=== PATIENT | female | born 1990 | race Caucasian/White ===

== ENCOUNTER 2016-08-07 21:58 | Emergency (ER) | payer MEDICAID ==
[2016-08-07 22:55] VITALS: O2SAT 96
[2016-08-07] MEDS ORDERED: Sodium Chloride 0.9% 1000 ML 1,000 ML IV STA (23:08)
[2016-08-07] MEDS ORDERED: Zofran 4 MG/2 ML VIAL IV ONE (23:09)
--- NOTE | 2016-08-07 23:13 | ERPHSYRPT ---
- History of Present Illness Time Seen by Provider: 08/07/16 23:00 Source: patient Exam Limitations: clinical condition Patient Subjective Stated Complaint: pt is co fever ,chills and lower back pain off and on since thursday -last week she had urinary sx and took cranberry juice and water with relief -tonight lower back pain ,chilling and temp of 100.4 and weakness pos nausea -had to leave work thursday because of feeling bad Triage Nursing Assessment: pt is awake and alert and able to answer questions Physician History: PATIENT COMPLAINS OF LEFT FLANK PAIN, FEVER, CHILLS INTERMITTENTLY FOR 10 DAYS, URGENCY OF URINATION WITH SMALL AMOUNTS. DENIES DYSURIA, HEMATURIA, EMESIS OR DIARRHEA. Timing/Duration: week(s) Activites at Onset: none Quality: throbbing Onset Location: left flank Pain Radiation: none Severity of Pain-Max: severe Severity of Pain-Current: severe Sexual intercourse history: non-contributory Modifying Factors: Improves With: urinating Associated Symptoms: fever, chills, other (URGENCY) Allergies/Adverse Reactions: No Known Drug Allergies Allergy (Verified 03/28/16 06:16) Hx Tetanus, Diphtheria Vaccination/Date Given: Yes Hx Influenza Vaccination/Date Given: Yes Hx Pneumococcal Vaccination/Date Given: No - Review of Systems Constitutional: Fever, Chills Eyes: No Symptoms Ears, Nose, & Throat: No Symptoms Respiratory: No Symptoms, No Cough, No Dyspnea Cardiac: No Symptoms, No Chest Pain, No Edema, No Syncope Abdominal/Gastrointestinal: No Symptoms, No Abdominal Pain, No Nausea, No Vomiting, No Diarrhea Genitourinary Symptoms: Urgency, Flank Pain, No Dysuria Musculoskeletal: No Symptoms, No Back Pain, No Neck Pain Skin: No Symptoms, No Rash Neurological: No Dizziness, No Focal Weakness, No Sensory Changes Psychological: No Symptoms Endocrine: No Symptoms All Other Systems: Reviewed and Negative - Past Medical History Pertinent Past Medical History: Yes Neurological History: No Pertinent History, Other ENT History: No Pertinent History Cardiac History: No Pertinent History Respiratory History: No Pertinent History Endocrine Medical History: No Pertinent History Musculoskeletal History: No Pertinent History GI Medical History: No Pertinent History History: No Pertinent History Psycho-Social History: No Pertinent History Female Reproductive Disorders: No Pertinent History Other Medical History: right knee pain - Past Surgical History Past Surgical History: Yes Neuro Surgical History: No Pertinent History Cardiac: No Pertinent History Respiratory: No Pertinent History Gastrointestinal: No Pertinent History Genitourinary: No Pertinent History Musculoskeletal: No Pertinent History Female Surgical History: Section - Social History Smoking Status: Former smoker How long have you smoked: 10 years Exposure to second hand smoke: Yes Drug Use: none Patient Lives Alone: No - Female History Hx Last Menstrual Period: unknown Hx Now: (POSSABLE) - Nursing Vital Signs Nursing Vital Signs: Initial Vital Signs Temperature 99.4 F Temperature Source Oral Pulse Rate 80 Respiratory Rate 16 Blood Pressure [Right Arm] 116/80 Pain Intensity 6 - Physical Exam SpO2: 96 Oxygen Delivery: Room Air - CT Exams Abdomen/Pelvis CT Interpretation: Tele-radiologist Report (THERE IS 2MM LEFT UPPER POLE RENAL CALCULUS) Ordered Tests: Active Orders 24 hr Category Date Time Status IV Insertion STAT Care 08/07/16 23:08 Active ABDOMEN AND PELVIS W/0 CONTRAS [CT] Stat Exams 08/07/16 23:08 Taken BLOOD CULTURE Stat Lab 08/07/16 23:30 Received BMP Stat Lab 08/07/16 23:15 Completed CBC W DIFF Stat Lab 08/07/16 23:15 Completed HCG,QUALITATIVE URINE Stat Lab 08/07/16 23:00 Completed UA W/ MICROSCOPIC Stat Lab 08/07/16 23:00 Completed Urine Triage Profile Stat Lab 08/07/16 23:00 Completed Medication Summary Generic Name Dose Route Start Last Admin Trade Name Freq PRN Reason Stop Dose Admin Ketorolac Tromethamine 30 mg 08/08/16 00:51 Toradol 30 Mg Injection IV 08/08/16 00:52 STAT ONE Discontinued Medications Generic Name Dose Route Start Last Admin Trade Name Freq PRN Reason Stop Dose Admin Fentanyl Citrate 100 mcg 08/07/16 23:18 08/08/16 00:00 Sublimaze 100 Mcg/2 Ml IV 08/07/16 23:19 100 mcg STAT ONE Administration Fentanyl Citrate Confirm 08/07/16 23:56 Sublimaze 100 Mcg/2 Ml Administered 08/07/16 23:57 Dose 100 mcg .ROUTE .STK-MED ONE Sodium Chloride 1,000 mls @ 999 mls/hr 08/07/16 23:08 08/07/16 23:21 Sodium Chloride 0.9% 1000 Ml IV 08/08/16 00:08 999 mls/hr .Q1H1M STA Administration Sodium Chloride Confirm 08/07/16 23:19 Sodium Chloride 0.9% 1000 Ml Administered 08/07/16 23:20 Dose 1,000 mls @ ud .ROUTE .STK-MED ONE Sodium Chloride Confirm 08/07/16 23:59 Sodium Chloride 0.9% 1000 Ml Administered 08/08/16 00:00 Dose 1,000 mls @ ud .ROUTE .STK-MED ONE Ondansetron HCl 4 mg 08/07/16 23:09 08/07/16 23:22 Zofran 4 Mg/2 Ml Vial IV 08/07/16 23:10 4 mg STAT ONE Administration Ondansetron HCl Confirm 08/07/16 23:19 Zofran 4 Mg/2 Ml Vial Administered 08/07/16 23:20 Dose 4 mg .ROUTE .STK-MED ONE Lab/Rad Data: Laboratory Result Diagrams 08/07/16 23:15 08/07/16 23:15 Laboratory Results 08/07/16 08/07/16 08/07/16 Range/Units 23:15 23:15 23:00 WBC 7.7 (4.0-10.5) K/mm3 RBC 3.96 L (4.1-5.4) M/mm3 Hgb 11.0 L (12.0-16.0) gm/dl Hct 33.8 L (35-47) % MCV 85.4 (78-100) fl MCH 27.7 (26-32) pg MCHC 32.5 (32-36) g/dl RDW 14.0 (11.5-14.0) % Plt Count 285 (150-450) K/mm3 MPV 9.5 (6-9.5) fl Gran % 52.7 (36.0-66.0) % Lymphocytes % 31.9 (24.0-44.0) % Monocytes % 14.7 H (0.0-12.0) % Eosinophils % 0.4 (0.00-5.0) % Basophils % 0.3 (0.0-0.4) % Basophils # 0.02 (0-0.4) Sodium 143 (136-145) mEq/L Potassium 3.5 (3.5-5.1) mEq/L Chloride 107 (98-107) mEq/L Carbon Dioxide 25.2 (21-32) mEq/L Anion Gap 14.3 (5-15) MEQ/L BUN 15 (9-20) mg/dL Creatinine 0.73 (0.55-1.30) mg/dl Estimated GFR > 60 ML/MIN Glucose 101 (70-110) MG/DL Calcium 8.9 (8.5-10.1) mg/dL Ur Collection Type Urine Color (YELLOW) Urine Appearance (CLEAR) Urine pH (5-6) Ur Specific [place] (1.005-1.025) Urine Protein (Negative) Urine Glucose (UA) (NEGATIVE) mg/dL Urine Ketones (NEGATIVE) Urine Nitrite (NEGATIVE) Urine Bilirubin (NEGATIVE) Urine Urobilinogen (0-1) mg/dL Urine WBC (Auto) (NEGATIVE) Urine RBC (Auto) (0-5) Eamon/ul Urine Microscopic WBC (0-5) /HPF Ur Epithelial Cells (FEW) /HPF Urine Bacteria (NEGATIVE) /HPF Urine Mucus (NEGATIVE) /HPF Urine HCG, Qual NEGATIVE (Negative) Urine Opiates Level (NEGATIVE) Ur Methadone (NEGATIVE) Urine Barbiturates (NEGATIVE) Ur Phencyclidine (PCP) (NEGATIVE) Urine Amphetamine (NEGATIVE) U Benzodiazepine Level (NEGATIVE) Urine Cocaine (NEGATIVE) Urine Marijuana (THC) (NEGATIVE) Specimen Received 08/07/16 08/07/16 Range/Units 23:00 23:00 WBC (4.0-10.5) K/mm3 RBC (4.1-5.4) M/mm3 Hgb (12.0-16.0) gm/dl Hct (35-47) % MCV (78-100) fl MCH (26-32) pg MCHC (32-36) g/dl RDW (11.5-14.0) % Plt Count (150-450) K/mm3 MPV (6-9.5) fl Gran % (36.0-66.0) % Lymphocytes % (24.0-44.0) % Monocytes % (0.0-12.0) % Eosinophils % (0.00-5.0) % Basophils % (0.0-0.4) % Basophils # (0-0.4) Sodium (136-145) mEq/L Potassium (3.5-5.1) mEq/L Chloride (98-107) mEq/L Carbon Dioxide (21-32) mEq/L Anion Gap (5-15) MEQ/L BUN (9-20) mg/dL Creatinine (0.55-1.30) mg/dl Estimated GFR ML/MIN Glucose (70-110) MG/DL Calcium (8.5-10.1) mg/dL Ur Collection Type CLEAN CATCH Urine Color YELLOW (YELLOW) Urine Appearance CLEAR (CLEAR) Urine pH 8.5 (5-6) Ur Specific [place] 1.015 (1.005-1.025) Urine Protein TRACE (Negative) Urine Glucose (UA) NEGATIVE (NEGATIVE) mg/dL Urine Ketones SMALL-15 (NEGATIVE) Urine Nitrite NEGATIVE (NEGATIVE) Urine Bilirubin NEGATIVE (NEGATIVE) Urine Urobilinogen 4 (0-1) mg/dL Urine WBC (Auto) TRACE (NEGATIVE) Urine RBC (Auto) NEGATIVE (0-5) Eamon/ul Urine Microscopic WBC 0-2 (0-5) /HPF Ur Epithelial Cells FEW (FEW) /HPF Urine Bacteria RARE (NEGATIVE) /HPF Urine Mucus SLIGHT (NEGATIVE) /HPF Urine HCG, Qual (Negative) Urine Opiates Level NEG. (NEGATIVE) Ur Methadone NEG. (NEGATIVE) Urine Barbiturates NEG. (NEGATIVE) Ur Phencyclidine (PCP) NEG. (NEGATIVE) Urine Amphetamine NEG. (NEGATIVE) U Benzodiazepine Level NEG. (NEGATIVE) Urine Cocaine NEG. (NEGATIVE) Urine Marijuana (THC) NEG. (NEGATIVE) Specimen Received 08/07/16:2300 - Progress Progress: improved Progress Note: 08/07/16 23:12 PATIENT GIVEN IV BOLUS 1 LITER/HR X 2, ZOFRAN 4MG, FENTANYL 0.1MG IV AND TORADOL 30MG IV 08/08/16 01:01 Counseled pt/family regarding: lab results, diagnosis, need for follow-up, rad results - Departure Time of Disposition: 01:15 Departure Disposition: Home Clinical Impression: LEFT RENAL CALCULUS Condition: Stable Critical Care Time: No Additional Instructions: DRINK PLENTY OF FLUIDS. ZOFRAN 4MG EVERY 4 HOURS FOR NAUSEA. CONTINUE PERCOCET EVERY 4-6 HOURS FOR PAIN. CONSULT YOUR FAMILY PHYSICIAN FOR EVALUATION IN 4-5 DAYS. USE A STRAINER TO STRAIN YOUR URINE FOR 72 HOURS. Prescriptions: Ondansetron [Zofran Odt] 4 mg PO Q4H PRN PRN #4 tab.rapdis PRN Reason: Nausea Oxycodone HCl/Acetaminophen [Percocet 10-325 mg Tablet] 1 each PO Q4H PRN PRN # 20 tablet PRN Reason: Pain
[2016-08-07] MEDS ORDERED: SUBLIMAZE 100 MCG/2 ML IV ONE (23:18)
[2016-08-07 23:19] LABS: Collection Type CLEAN CATCH; Ph 8.5 (5-6)
[2016-08-07] MEDS ORDERED: Sodium Chloride 0.9% 1000 ML 1,000 ML ONE ×2 (23:19→23:59)
[2016-08-07] MEDS ORDERED: Zofran 4 MG/2 ML VIAL ONE (23:19)
[2016-08-07 23:20] LABS: Bacteria RARE /HPF (NEGATIVE); COMPLETE URINE MICROSCOPIC? YES; Epithelial Cells FEW /HPF (FEW); Mucus SLIGHT /HPF (NEGATIVE); WBC 0-2 /HPF (0-5)
[2016-08-07 23:27] LABS: BASOPHIL % 0.3 % (0.0-0.4); Eosinophil % 0.4 % (0.00-5.0); Granulocytes % 52.7 % (36.0-66.0); Lymphocytes % 31.9 % (24.0-44.0); Mean Cell Volume 85.4 fl (78-100); Mean Platelet Volume 9.5 fl (6-9.5); Monocytes % 14.7 % (0.0-12.0); Platelet Count 285 K/mm3 (150-450); Red Blood Count 3.96 M/mm3 (4.1-5.4); White Blood Count 7.7 K/mm3 (4.0-10.5)
[2016-08-07 23:30] LABS: Mean Corpuscular Hemoglobin 27.7 pg (26-32)
[2016-08-07 23:40] LABS: ANION GAP 14.3 MEQ/L (5-15); BLOOD UREA NITROGEN 15 mg/dL (9-20); CHLORIDE 107 mEq/L (98-107); Carbon Dioxide 25.2 mEq/L (21-32); Glucose 101 MG/DL (70-110); Potassium 3.5 mEq/L (3.5-5.1); SODIUM 143 mEq/L (136-145)
[2016-08-07] MEDS ORDERED: SUBLIMAZE 100 MCG/2 ML ONE (23:56)
[2016-08-08] MEDS ORDERED: TORAdol 30 mg Injection IV ONE (00:51)
[2016-08-08 01:01] VITALS: BP 128/78; PULSE 72
[2016-08-08] MEDS ORDERED: TORAdol 30 mg Injection ONE (01:03)
--- NOTE | 2016-08-08 08:55 | XRAY ---
Indication: Left flank pain for over one week. Fever. Trouble urinating. Multiple contiguous axial images obtained through the abdomen and pelvis without contrast as ordered. Comparison: None Calcified granuloma in the right lung base. Lung bases otherwise clear. Heart is not enlarged. Noncontrasted stomach and bowel loops appear nonobstructed. Normal appendix. Tiny cul-de-sac fluid presumed from ruptured/leaking cyst. Ovaries are slightly prominent with follicular cysts, largest on the left measuring 1.7 cm. Uterus demonstrates a IUD in situ. Gallbladder contracted without gallstones or biliary distention. Nonobstructing left renal micro-calculus. Remaining liver, pancreas, spleen, adrenal glands, kidneys, ureters, bladder, and aorta appear unremarkable for noncontrast exam. Osseous structures intact. Impression: 1. Tiny cul-de-sac fluid presumed physiologic from ruptured/leaking cyst. Dominant left ovary cyst. Pelvic ultrasound may yield further information if clinically warranted. 2. Remaining CT abdomen/pelvis without contrast exam is negative. Comment: Preliminary interpretation was made by [facility]. No critical discrepancy. CT DI 10.28
== END 2016-08-08 01:49 | disposition home or self-care (01) ==
LOC: ED 21:58
DX: N20.0 Calculus of kidney (principal); R11.0 Nausea; R50.9 Fever, unspecified; M54.5 Low back pain; R10.9 Unspecified abdominal pain
CPT/HCPCS: 36000; 36415; 74176; 80048; 80307; 81000; 84703; 85025; 87040; 96360; 96374; 96375; 99283; J1885; J2405; J3010

== ENCOUNTER 2018-03-18 18:39 | Emergency (ER) | payer OTHER ==
[2018-03-18] MEDS ORDERED: Sodium Chloride 0.9% 1000 ML 1,000 ML IV STA (19:10)
[2018-03-18] MEDS ORDERED: Zofran 4 MG/2 ML VIAL IV ONE (19:10)
[2018-03-18] MEDS ORDERED: TORAdol 30 mg Injection IV ONE (19:10)
[2018-03-18 19:12] VITALS: BP 108/72; PULSE 79; O2SAT 100
--- NOTE | 2018-03-18 19:14 | ERPHSYRPT ---
- History of Present Illness Time Seen by Provider: 03/18/18 19:03 Source: patient Exam Limitations: no limitations Physician History: 27 y/o female comes to the ER with complaints of left flank pain that started today. Pt states that she has been on bactrim for a UTI for the past 2 days. Pt describes the pain as sharp, constant, 8/10, with radiation to lower abdomen and not relieved by motrin. Pt had a fever on Thursday. Pt admits to nausea, but no vomiting, diarrhea, chills or urinary symptoms. Timing/Duration: today Activites at Onset: none Quality: sharpness Onset Location: left flank Pain Radiation: suprapubic Severity of Pain-Max: severe Severity of Pain-Current: severe Prior abdominal problems: none Sexual intercourse history: non-contributory Modifying Factors: Improves With: nothing Associated Symptoms: denies symptoms, No fever, No dysuria, No nocturia, No polyuria, No urinary frequency, No vaginal discharge Allergies/Adverse Reactions: No Known Drug Allergies Allergy (Verified 03/18/18 19:14) Hx Tetanus, Diphtheria Vaccination/Date Given: Yes Hx Influenza Vaccination/Date Given: Yes Hx Pneumococcal Vaccination/Date Given: No - Review of Systems Constitutional: No Fever, No Chills Eyes: No Symptoms Ears, Nose, & Throat: No Symptoms Respiratory: No Cough, No Dyspnea Cardiac: No Chest Pain, No Edema, No Syncope Abdominal/Gastrointestinal: No Abdominal Pain, No Nausea, No Vomiting, No Diarrhea Genitourinary Symptoms: Flank Pain, No Dysuria, No Frequency, No Hematuria, No Hesitancy Musculoskeletal: No Back Pain, No Neck Pain Skin: No Rash Neurological: No Dizziness, No Focal Weakness, No Sensory Changes Psychological: No Symptoms Endocrine: No Symptoms All Other Systems: Reviewed and Negative - Past Medical History Pertinent Past Medical History: Yes Neurological History: No Pertinent History ENT History: No Pertinent History Cardiac History: No Pertinent History Respiratory History: No Pertinent History Endocrine Medical History: No Pertinent History Musculoskeletal History: No Pertinent History GI Medical History: No Pertinent History History: No Pertinent History Psycho-Social History: No Pertinent History Female Reproductive Disorders: No Pertinent History Other Medical History: right knee pain - Past Surgical History Past Surgical History: Yes Neuro Surgical History: No Pertinent History Cardiac: No Pertinent History Respiratory: No Pertinent History Gastrointestinal: No Pertinent History Genitourinary: No Pertinent History Musculoskeletal: No Pertinent History Female Surgical History: Section - Social History Smoking Status: Former smoker How long have you smoked: 10 years Exposure to second hand smoke: Yes Drug Use: none Patient Lives Alone: No - Nursing Vital Signs Nursing Vital Signs: Initial Vital Signs Temperature 98.2 F 03/18/18 18:59 Pulse Rate 79 03/18/18 18:59 Blood Pressure 108/72 03/18/18 18:59 O2 Sat by Pulse Oximetry 100 03/18/18 18:59 Pain Scale Pain Intensity 8 - Physical Exam General Appearance: mild distress, alert Eye Exam: PERRL/EOMI, eyes nml inspection Ears, Nose, Throat Exam: normal ENT inspection, TMs normal, pharynx normal, moist mucous membranes Neck Exam: normal inspection, non-tender, supple, full range of motion Respiratory Exam: normal breath sounds, lungs clear, No respiratory distress Cardiovascular Exam: regular rate/rhythm, normal heart sounds, normal peripheral pulses Gastrointestinal/Abdomen Exam: soft, No tenderness, No mass Back Exam: normal inspection, normal range of motion, CVA tenderness, No vertebral tenderness Extremity Exam: normal inspection, normal range of motion, pelvis stable Neurologic Exam: alert, oriented x 3, cooperative, college admissions counselor II-XII nml as tested, normal mood/affect, sensation nml, No motor deficits Skin Exam: normal color, warm, dry Lymphatic Exam: No adenopathy - Course Nursing assessment & vital signs reviewed: Yes Ordered Tests: Active Orders 24 hr Category Date Time Status IV Insertion STAT Care 03/18/18 19:10 Active NPO (ED) STAT Care 03/18/18 19:10 Active ABDOMEN AND PELVIS W/0 CONTRAS [CT] Stat Exams 03/18/18 19:10 Taken AMYLASE Stat Lab 03/18/18 19:26 Completed CBC W DIFF Stat Lab 03/18/18 19:26 Completed CMP Stat Lab 03/18/18 19:26 Completed CULTURE,URINE Stat Lab 03/18/18 Received HCG QUALITATIVE,SERUM Stat Lab 03/18/18 19:26 Completed LIPASE Stat Lab 03/18/18 19:26 Completed UA W/ MICROSCOPIC Stat Lab 03/18/18 Completed Medication Summary Generic Name Dose Route Start Last Admin Trade Name Freq PRN Reason Stop Dose Admin Ceftriaxone Sodium/Dextrose 1 g in 50 mls @ 100 mls/hr 03/18/18 22:12 Rocephin 1 Gm-D5w 50 Ml Bag IV 03/18/18 22:41 STAT ONE Discontinued Medications Generic Name Dose Route Start Last Admin Trade Name Gretchen PRN Reason Stop Dose Admin Hydrocodone Bitart/Acetaminophen 2 tab 03/18/18 22:12 [place] 5/325 Mg PO 03/18/18 22:13 STAT ONE Sodium Chloride 1,000 mls @ 999 mls/hr 03/18/18 19:10 03/18/18 20:39 Sodium Chloride 0.9% 1000 Ml IV 03/18/18 20:10 Infused .Q1H1M STA Infusion Sodium Chloride Confirm 03/18/18 19:28 Sodium Chloride 0.9% 1000 Ml Administered 03/18/18 19:29 Dose 1,000 mls @ ud .ROUTE .STK-MED ONE Ketorolac Tromethamine 30 mg 03/18/18 19:10 03/18/18 19:30 Toradol 30 Mg Injection IV 03/18/18 19:11 30 mg STAT ONE Administration Ketorolac Tromethamine Confirm 03/18/18 19:28 Toradol 30 Mg Injection Administered 03/18/18 19:29 Dose 30 mg .ROUTE .STK-MED ONE Ondansetron HCl 4 mg 03/18/18 19:10 03/18/18 19:30 Zofran 4 Mg/2 Ml Vial IV 03/18/18 19:11 4 mg STAT ONE Administration Ondansetron HCl Confirm 03/18/18 19:28 Zofran 4 Mg/2 Ml Vial Administered 03/18/18 19:29 Dose 4 mg .ROUTE .STK-MED ONE Lab/Rad Data: Laboratory Result Diagrams 03/18/18 19:26 03/18/18 19:26 Laboratory Results 03/18/18 03/18/18 03/18/18 Range/Units Unknown 19:26 19:26 WBC (4.0-10.5) K/mm3 RBC (4.1-5.4) M/mm3 Hgb (12.0-16.0) gm/dl Hct (35-47) % MCV (78-100) fl MCH (26-32) pg MCHC (32-36) g/dl RDW (11.5-14.0) % Plt Count (150-450) K/mm3 MPV (6-9.5) fl Gran % (36.0-66.0) % Eos # (Auto) (0-0.5) Absolute Lymphs (auto) (1.0-4.6) Absolute Monos (auto) (0.0-1.3) Lymphocytes % (24.0-44.0) % Monocytes % (0.0-12.0) % Eosinophils % (0.00-5.0) % Basophils % (0.0-0.4) % Absolute Granulocytes (1.4-6.9) Basophils # (0-0.4) Sodium 142 (137-145) mmol/L Potassium 4.0 (3.5-5.1) mmol/L Chloride 106 (98-107) mmol/L Carbon Dioxide 26 (22-30) mmol/L Anion Gap 14.2 (5-15) MEQ/L BUN 9 (7-17) mg/dL Creatinine 0.73 (0.52-1.04) mg/dL Estimated GFR > 60.0 ML/MIN Glucose 82 (74-106) mg/dL Calcium 9.3 (8.4-10.2) mg/dL Total Bilirubin 0.20 (0.2-1.3) mg/dL AST 14 (14-36) U/L ALT 9 (0-35) U/L Alkaline Phosphatase 66 (38-126) U/L Serum Total Protein 7.2 (6.3-8.2) g/dL Albumin 4.4 (3.5-5.0) g/dL Amylase 51 (30-110) U/L Lipase 93 (23-300) U/L Serum , Qual NEGATIVE (Negative) Ur Collection Type CCMS Urine Color YELLOW (YELLOW) Urine Appearance CLEAR (CLEAR) Urine pH 6.0 (5-6) Ur Specific [place] 1.015 (1.005-1.025) Urine Protein NEGATIVE (Negative) Urine Ketones NEGATIVE (NEGATIVE) Urine Blood 50 (0-5) Eamon/ul Urine Nitrite NEGATIVE (NEGATIVE) Urine Bilirubin NEGATIVE (NEGATIVE) Urine Urobilinogen NORMAL (0-1) mg/dL Ur Leukocyte Esterase TRACE (NEGATIVE) Urine Microscopic RBC 2-5 (0-2) /HPF Urine Microscopic WBC 2-5 (0-5) /HPF Ur Epithelial Cells FEW (FEW) /HPF Urine Culture Reflexed YES (NO) Urine Glucose NEGATIVE (NEGATIVE) mg/dL Specimen Received 03-18-18 2030 03/18/18 Range/Units 19:26 WBC 9.3 (4.0-10.5) K/mm3 RBC 3.93 L (4.1-5.4) M/mm3 Hgb 12.3 (12.0-16.0) gm/dl Hct 36.8 (35-47) % MCV 93.6 (78-100) fl MCH 31.2 (26-32) pg MCHC 33.4 (32-36) g/dl RDW 12.1 (11.5-14.0) % Plt Count 300 (150-450) K/mm3 MPV 8.8 (6-9.5) fl Gran % 48.4 (36.0-66.0) % Eos # (Auto) 0.14 (0-0.5) Absolute Lymphs (auto) 3.29 (1.0-4.6) Absolute Monos (auto) 1.33 H (0.0-1.3) Lymphocytes % 35.4 (24.0-44.0) % Monocytes % 14.3 H (0.0-12.0) % Eosinophils % 1.5 (0.00-5.0) % Basophils % 0.4 (0.0-0.4) % Absolute Granulocytes 4.49 (1.4-6.9) Basophils # 0.04 (0-0.4) Sodium (137-145) mmol/L Potassium (3.5-5.1) mmol/L Chloride (98-107) mmol/L Carbon Dioxide (22-30) mmol/L Anion Gap (5-15) MEQ/L BUN (7-17) mg/dL Creatinine (0.52-1.04) mg/dL Estimated GFR ML/MIN Glucose (74-106) mg/dL Calcium (8.4-10.2) mg/dL Total Bilirubin (0.2-1.3) mg/dL AST (14-36) U/L ALT (0-35) U/L Alkaline Phosphatase (38-126) U/L Serum Total Protein (6.3-8.2) g/dL Albumin (3.5-5.0) g/dL Amylase (30-110) U/L Lipase (23-300) U/L Serum , Qual (Negative) Ur Collection Type Urine Color (YELLOW) Urine Appearance (CLEAR) Urine pH (5-6) Ur Specific [place] (1.005-1.025) Urine Protein (Negative) Urine Ketones (NEGATIVE) Urine Blood (0-5) Eamon/ul Urine Nitrite (NEGATIVE) Urine Bilirubin (NEGATIVE) Urine Urobilinogen (0-1) mg/dL Ur Leukocyte Esterase (NEGATIVE) Urine Microscopic RBC (0-2) /HPF Urine Microscopic WBC (0-5) /HPF Ur Epithelial Cells (FEW) /HPF Urine Culture Reflexed (NO) Urine Glucose (NEGATIVE) mg/dL Specimen Received - Progress Progress: improved Progress Note: 03/18/18 22:13 Pt feels better after receiving NS fluids, zofran and toradol. The CT scan abd/ pelvis shows left sided pyelonephritis. The patient has no fever, no white count and is not actively vomiting. Pt will stop bactrim and will be given a dose of rocephin 1000 IV X 1 dose as well as will be given a script for cipro for 7 days. Pt will also be given a script for norco, toradol, zofran and cipro. - Departure Time of Disposition: 22:15 Departure Disposition: Home Clinical Impression: Pyelonephritis Condition: Stable Critical Care Time: No Referrals: FREDY HOUSTON [Primary Care Provider] - Instructions: Urinary Tract Infection, Adult (DC) Additional Instructions: STOP Bactrim right away. Return to the ER if you should have fever, chills, nausea, vomiting or worsening flank pain. Prescriptions: Ondansetron ODT 4 MG [Zofran Odt 4 mg] 4 mg PO Q6H PRN PRN #10 tab.rapdis PRN Reason: Nausea/Vomiting Ciprofloxacin HCl [Cipro] 500 mg PO BID #14 tablet Hydrocodone Bit/Acetaminophen [[place] 5-325 Tablet] 1 each PO QID PRN #10 tablet MDD 4 PRN Reason: Severe Pain Ketorolac Tromethamine [Toradol] 10 mg PO QID PRN #20 tablet PRN Reason: Pain
[2018-03-18 19:28] LABS: BASOPHIL % 0.4 % (0.0-0.4); Basophil (Absolute #) 0.04 (0-0.4); Eosinophil % 1.5 % (0.00-5.0); Eosinophil (Absolute #) 0.14 (0-0.5); Granulocyte Absolute (ANC) 4.49 (1.4-6.9); Granulocytes % 48.4 % (36.0-66.0); Hematocrit 36.8 % (35-47); Hemoglobin 12.3 gm/dl (12.0-16.0); Lymphocyte (Absolute #) 3.29 (1.0-4.6); Lymphocytes % 35.4 % (24.0-44.0); Mean Cell Volume 93.6 fl (78-100); Mean Corpuscular Hgb Concent. 33.4 g/dl (32-36); Mean Platelet Volume 8.8 fl (6-9.5); Monocyte (Absolute #) 1.33 (0.0-1.3); Monocytes % 14.3 % (0.0-12.0); Platelet Count 300 K/mm3 (150-450); Red Blood Count 3.93 M/mm3 (4.1-5.4); Red Cell Distribution Width 12.1 % (11.5-14.0); White Blood Count 9.3 K/mm3 (4.0-10.5)
[2018-03-18] MEDS ORDERED: Sodium Chloride 0.9% 1000 ML 1,000 ML ONE (19:28)
[2018-03-18] MEDS ORDERED: TORAdol 30 mg Injection ONE (19:28)
[2018-03-18] MEDS ORDERED: Zofran 4 MG/2 ML VIAL ONE (19:28)
[2018-03-18 19:44] LABS: Mean Corpuscular Hemoglobin 31.2 pg (26-32)
[2018-03-18 19:51] LABS: ALBUMIN 4.4 g/dL (3.5-5.0); ALKALINE PHOSPHATASE 66 U/L (38-126); AMYLASE 51 U/L (30-110); ANION GAP 14.2 MEQ/L (5-15); BLOOD UREA NITROGEN 9 mg/dL (7-17); CHLORIDE 106 mmol/L (98-107); Calcium 9.3 mg/dL (8.4-10.2); Carbon Dioxide 26 mmol/L (22-30); Creatinine 1 0.73 mg/dL (0.52-1.04); Glucose 82 mg/dL (74-106); LIPASE 93 U/L (23-300); SGOT/AST 14 U/L (14-36); SGPT/ALT 9 U/L (0-35); SODIUM 142 mmol/L (137-145); Total Protein 7.2 g/dL (6.3-8.2)
[2018-03-18 20:33] LABS: Appearance CLEAR (CLEAR); Bilirubin NEGATIVE (NEGATIVE); Glucose NEGATIVE (NEGATIVE); Ketones NEGATIVE (NEGATIVE); Leukocyte Esterase TRACE (NEGATIVE); Nitrite NEGATIVE (NEGATIVE); Protein,Urine Dip NEGATIVE (Negative); Specific Gravity 1.015 (1.005-1.025); Urobilinogen NORMAL mg/dL (0-1)
[2018-03-18 20:34] LABS: Blood 50 Ery/ul (0-5); Epithelial Cells FEW /HPF (FEW)
[2018-03-18] MEDS ORDERED: ROCEPHIN 1 Gm-D5w 50 ml Bag** 1 G/50 ML IVPB IV ONE ×2 (22:12→22:29)
[2018-03-18] MEDS ORDERED: NORCO 5/325 MG PO ONE (22:12)
[2018-03-18] MEDS ORDERED: NORCO 5/325 MG ONE (22:29)
--- NOTE | 2018-03-19 09:16 | XRAY ---
Indication: Right abdominal pain. UTI. History kidney stone. Multiple contiguous axial images obtained through the abdomen and pelvis without contrast as ordered. Comparison: August 07, 2016. Lung bases demonstrate stable right lower lobe calcified granuloma. No infiltrate or effusion. Heart is not enlarged. Noncontrasted stomach and bowel loops appear nonobstructed. Appendix not seen. Mild diffuse scattered colonic fecal debris throughout. New 6 cm right ovary cyst. No free fluid/air. Right kidney now demonstrates minimal perinephric stranding favoring nephritis. Again no renal calculus or evidence for obstructive uropathy in either system. Stable IUD. Remaining liver, gallbladder, pancreas, spleen, adrenal glands, kidneys, ureters, bladder, and aorta appear unremarkable for noncontrast exam. Osseous structures intact. Impression: 1. New 6 cm right ovary cyst. Pelvic sonogram may yield further information if clinically warranted. 2. New right perinephric stranding. Rule out nephritis. 3. Mild fecal stasis without obstruction. CT DI 9.95
== END 2018-03-18 22:59 | disposition home or self-care (01) ==
LOC: ED 18:39
DX: N12 Tubulo-interstitial nephritis, not specified as acute or chronic (principal)
CPT/HCPCS: 36415; 74176; 80053; 81000; 82150; 83690; 84703; 85025; 87086; 96360; 96365; 96374; 96375; 99284; J0696; J1885; J2405; A9270-GY

== ENCOUNTER 2021-10-09 13:45 | Emergency (ER) | payer OTHER ==
--- NOTE | 2021-10-09 14:40 | ERPHSYRPT ---
- History of Present Illness Time Seen by Provider: 10/09/21 14:05 Source: patient Exam Limitations: no limitations Patient Subjective Stated Complaint: " I bent down to tie a shoe and I got really lightheaded and dizzy". Triage Nursing Assessment: Pt presents to ER with complaints of dizziness and lightheadedness. States "feels like the room is spinning". Pt is alert and oriented x 3. Answering questions appropriately. Pt denies nausea/vomiting. Pt states has ate normal today. Respirations are easy and unlabored at this time. Pt pupils PERRL. Pt denies any LOC. Skin is pink, warm, and dry. Pt complains of mild headache, rating pain 4/10 scale. States light sensitive right now. Physician History: 31 years old female with history of anxiety depression presented in the ER with chief complaint of dizziness. 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 She started to feel weak fatigued and tired all over. She was a little off balance as well. She feels nauseated and increased light sensitivity. Denies any focal numbness tingling or weakness. No ear infection or ringing in the ears. Denies any chest pain palpitations or shortness of breath. Timing/Duration: today, constant, sudden, improved Severity: moderate Character of Deficits: none Deficits: no difficulties Baseline/Normal Cognition: alert oriented x 3 Current Cognition: alert oriented x 3 Baseline Gait: walks w/o assistance Associated Symptoms: fatigue, No confusion, No loss of consciousness, No nausea, No vomiting, No weakness, No insomnia, No numbness/tingling in legs/feet, No paresthesia, No ringing in ears, No seizures, No slurred speech, No trouble walking, No vision changes, No chest pain, No headache Allergies/Adverse Reactions: No Known Drug Allergies Allergy (Verified 10/09/21 14:01) Home Medications: Hydroxyzine HCl 25 mg [Atarax 25 mg] 25 mg PO TID PRN 10/09/21 [History] Norethindrone-E.estradiol-Iron [Junel Fe 1 mg-20 Mcg Tablet] 1 tab PO DAILY 10/09/21 [History] Paroxetine HCl 20 mg [Paxil 20 MG] 20 mg PO DAILY 10/09/21 [History] Hx Tetanus, Diphtheria Vaccination/Date Given: No Hx Influenza Vaccination/Date Given: Yes Hx Pneumococcal Vaccination/Date Given: No Immunizations Up to Date: Yes Travel Risk - International Travel Have you traveled outside of the country in past 3 weeks: No - Coronavirus Screening Are you exhibiting any of the following symptoms?: No Close contact with a COVID-19 positive Pt in past 14-21 Days: No - Vaccine Status Have you recieved a Covid-19 vaccination: No - Review of Systems Constitutional: Fatigue, Weakness Eyes: No Symptoms Ears, Nose, & Throat: No Symptoms Respiratory: No Symptoms Cardiac: No Symptoms Abdominal/Gastrointestinal: Nausea Genitourinary Symptoms: No Symptoms Musculoskeletal: No Symptoms Skin: No Symptoms Neurological: Dizziness Psychological: Anxiety Endocrine: No Symptoms Hematologic/Lymphatic: No Symptoms Immunological/Allergic: No Symptoms - Past Medical History Pertinent Past Medical History: Yes Neurological History: No Pertinent History ENT History: No Pertinent History Cardiac History: No Pertinent History Respiratory History: No Pertinent History Endocrine Medical History: Hypothyroidism Musculoskeletal History: No Pertinent History GI Medical History: No Pertinent History History: No Pertinent History Psycho-Social History: Anxiety, Depression Female Reproductive Disorders: No Pertinent History Other Medical History: right knee pain - Past Surgical History Past Surgical History: Yes Neuro Surgical History: No Pertinent History Cardiac: No Pertinent History Respiratory: No Pertinent History Gastrointestinal: No Pertinent History Genitourinary: No Pertinent History Musculoskeletal: No Pertinent History Female Surgical History: Section - Social History Smoking Status: Current every day smoker How long have you smoked: 10 years Exposure to second hand smoke: No Drug Use: none Patient Lives Alone: No - Female History Hx Now: No - Nursing Vital Signs Nursing Vital Signs: Initial Vital Signs Temperature 97.9 F 10/09/21 13:55 Pulse Rate 92 H 10/09/21 13:55 Respiratory Rate 18 10/09/21 13:55 Blood Pressure 136/86 10/09/21 13:55 O2 Sat by Pulse Oximetry 100 10/09/21 13:55 Pain Scale Pain Intensity 0 - Moira Coma Scale Best Eye Response (Moira): (4) open spontaneously Best Verbal Response (Moira): (5) oriented Best Motor Response (Moira): (6) obeys commands Moira Total: 15 - Physical Exam General Appearance: no apparent distress, alert, anxiety Eye Exam: bilateral eye: normal inspection, PERRL, EOMI Ears, Nose, Throat Exam: normal ENT inspection, TMs normal, pharynx normal, moist mucous membranes Neck Exam: normal inspection, non-tender, supple, full range of motion Respiratory: normal breath sounds, lungs clear Cardiovascular: regular rate/rhythm, normal heart sounds Gastrointestinal: soft, normal bowel sounds, No tenderness Back Exam: normal inspection, normal range of motion Extremity Exam: normal inspection, normal range of motion, pelvis stable Mental Status: alert, oriented x 3, cooperative slurry control tender Exam: normal hearing, normal speech, PERRL, No facial asymmetry, No facial droop Coordination/Gait: normal finger to nose, normal gait, normal cerebellar function Motor/Sensory: no motor deficit, no sensory deficit, no pronator drift, negative Babinski's sign DTR: bicep (R): 2+, bicep (L): 2+, knee (R): 2+, knee (L): 2+ Skin Exam: normal color SpO2 Interpretation: normal SpO2: 100 O2 Delivery: Room Air - Course EKG Interpreted by Me: RATE ([id number]), Sinus Rhythm, NORMAL AXIS, NORMAL INTERVALS, NORMAL QRS Ordered Tests: Active Orders 24 hr Category Date Time Status Ambulate Patient ROUTINE Care 10/09/21 14:35 Active Surveillance Sensor Officer STAT Care 10/09/21 14:36 Active EKG-ER Only STAT Care 10/09/21 14:35 Active IV Insertion STAT Care 10/09/21 14:35 Active Orthostatic Vital Signs STAT Care 10/09/21 14:35 Active CHEST 1 VIEW (PORTABLE) Stat Exams 10/09/21 14:35 Completed HEAD WITHOUT CONTRAST [CT] Stat Exams 10/09/21 14:36 Completed CBC W DIFF Stat Lab 10/09/21 14:35 Completed CMP Stat Lab 10/09/21 14:35 Completed HCG,QUALITATIVE URINE Stat Lab 10/09/21 14:38 Completed Lactic Acid Stat Lab 10/09/21 14:47 Completed Lactic Acid Stat Lab 10/09/21 16:55 Received MAGNESIUM Stat Lab 10/09/21 14:35 Completed TROPONIN Q3H Lab 10/09/21 14:45 Completed TROPONIN Q3H Lab 10/09/21 17:45 Ordered TROPONIN Q3H Lab 10/09/21 20:45 Ordered TROPONIN Q3H Lab 10/09/21 23:45 Ordered TROPONIN Q3H Lab 10/10/21 02:45 Ordered Urine Triage Profile Stat Lab 10/09/21 14:38 Completed Medication Summary Discontinued Medications Generic Name Dose Route Start Last Admin Trade Name Gretchen PRN Reason Stop Dose Admin Sodium Chloride 1,000 mls @ 999 mls/hr 10/09/21 14:35 10/09/21 15:54 Sodium Chloride 0.9% 1000 Ml IV 10/09/21 15:35 Infused .Q1H1M STA Infusion Sodium Chloride Confirm 10/09/21 14:47 Sodium Chloride 0.9% 1000 Ml Administered 10/09/21 14:48 Dose 1,000 mls @ ud .ROUTE .STK-MED ONE Meclizine HCl 25 mg 10/09/21 14:35 10/09/21 14:48 Meclizine Hcl 25 Mg Tablet PO 10/09/21 14:36 25 mg STAT ONE Administration Meclizine HCl Confirm 10/09/21 14:47 Meclizine Hcl 25 Mg Tablet Administered 10/09/21 14:48 Dose 25 mg .ROUTE .STK-MED ONE Lab/Rad Data: Laboratory Result Diagrams 10/09/21 14:35 10/09/21 14:35 Laboratory Results 10/09/21 10/09/21 10/09/21 Range/Units 14:47 14:45 14:38 WBC (4.0-10.5) K/mm3 RBC (4.1-5.4) M/mm3 Hgb (12.0-16.0) gm/dl Hct (35-47) % MCV (78-100) fl MCH (26-32) pg MCHC (32-36) g/dl RDW (11.5-14.0) % Plt Count (150-450) K/mm3 MPV (7.5-11.0) fl Gran % (36.0-66.0) % Eos # (Auto) (0-0.5) Absolute Lymphs (auto) (1.0-4.6) Absolute Monos (auto) (0.0-1.3) Lymphocytes % (24.0-44.0) % Monocytes % (0.0-12.0) % Eosinophils % (0.00-5.0) % Basophils % (0.0-0.4) % Absolute Granulocytes (1.4-6.9) Basophils # (0-0.4) Sodium (137-145) mmol/L Potassium (3.5-5.1) mmol/L Chloride (98-107) mmol/L Carbon Dioxide (22-30) mmol/L Anion Gap (5-15) MEQ/L BUN (7-17) mg/dL Creatinine (0.52-1.04) mg/dL Estimated GFR ML/MIN Glucose (74-106) mg/dL Lactic Acid 2.0 (0.4-2.0) Calcium (8.4-10.2) mg/dL Magnesium (1.6-2.3) mg/dL Total Bilirubin (0.2-1.3) mg/dL AST (14-36) U/L ALT (0-35) U/L Alkaline Phosphatase (38-126) U/L Troponin I < 0.012 (0.000-0.034) ng/mL Serum Total Protein (6.3-8.2) g/dL Albumin (3.5-5.0) g/dL Urinalys Dipstick Clnc Urine Color (YELLOW) Urine Appearance (CLEAR) Urine pH (5-6) Ur Specific [place] (1.005-1.025) POC Urine Protein Conf (Negative) Urine Ketones (NEGATIVE) Urine Nitrite (NEGATIVE) Urine Bilirubin (NEGATIVE) Urine Urobilinogen (0-1) mg/dL Urine Leukocytes (NEGATIVE) Urine WBC (Auto) (0-5) /HPF Urine RBC (Auto) (0-2) /HPF U Epithel Cells (Auto) (FEW) /HPF Urine RBC (0-5) Eamon/ul Ur Culture Indicated? Urine Glucose (NEGATIVE) mg/dL Urine HCG, Qual NEGATIVE (Negative) Urine Opiates Level (NEGATIVE) Ur Methadone (NEGATIVE) Urine Barbiturates (NEGATIVE) Ur Phencyclidine (PCP) (NEGATIVE) Urine Amphetamine (NEGATIVE) U Benzodiazepine Level (NEGATIVE) Urine Cocaine (NEGATIVE) Urine Marijuana (THC) (NEGATIVE) 10/09/21 10/09/21 10/09/21 Range/Units 14:38 14:38 14:35 WBC (4.0-10.5) K/mm3 RBC (4.1-5.4) M/mm3 Hgb (12.0-16.0) gm/dl Hct (35-47) % MCV (78-100) fl MCH (26-32) pg MCHC (32-36) g/dl RDW (11.5-14.0) % Plt Count (150-450) K/mm3 MPV (7.5-11.0) fl Gran % (36.0-66.0) % Eos # (Auto) (0-0.5) Absolute Lymphs (auto) (1.0-4.6) Absolute Monos (auto) (0.0-1.3) Lymphocytes % (24.0-44.0) % Monocytes % (0.0-12.0) % Eosinophils % (0.00-5.0) % Basophils % (0.0-0.4) % Absolute Granulocytes (1.4-6.9) Basophils # (0-0.4) Sodium 138 (137-145) mmol/L Potassium 4.0 (3.5-5.1) mmol/L Chloride 105 (98-107) mmol/L Carbon Dioxide 23 (22-30) mmol/L Anion Gap 14.5 (5-15) MEQ/L BUN 11 (7-17) mg/dL Creatinine 0.58 (0.52-1.04) mg/dL Estimated GFR > 60.0 ML/MIN Glucose 86 (74-106) mg/dL Lactic Acid (0.4-2.0) Calcium 9.8 (8.4-10.2) mg/dL Magnesium 2.1 (1.6-2.3) mg/dL Total Bilirubin 0.90 (0.2-1.3) mg/dL AST 26 (14-36) U/L ALT 13 (0-35) U/L Alkaline Phosphatase 61 (38-126) U/L Troponin I (0.000-0.034) ng/mL Serum Total Protein 7.3 (6.3-8.2) g/dL Albumin 4.7 (3.5-5.0) g/dL Urinalys Dipstick Clnc MAIN LAB Urine Color YELLOW (YELLOW) Urine Appearance CLEAR (CLEAR) Urine pH 7.5 (5-6) Ur Specific [place] 1.015 (1.005-1.025) POC Urine Protein Conf NEGATIVE (Negative) Urine Ketones NEGATIVE (NEGATIVE) Urine Nitrite NEGATIVE (NEGATIVE) Urine Bilirubin NEGATIVE (NEGATIVE) Urine Urobilinogen 1 (0-1) mg/dL Urine Leukocytes NEGATIVE (NEGATIVE) Urine WBC (Auto) NONE (0-5) /HPF Urine RBC (Auto) 0-2 (0-2) /HPF U Epithel Cells (Auto) RARE (FEW) /HPF Urine RBC NEGATIVE (0-5) Eamon/ul Ur Culture Indicated? NO Urine Glucose NEGATIVE (NEGATIVE) mg/dL Urine HCG, Qual (Negative) Urine Opiates Level NEGATIVE (NEGATIVE) Ur Methadone NEGATIVE (NEGATIVE) Urine Barbiturates NEGATIVE (NEGATIVE) Ur Phencyclidine (PCP) NEGATIVE (NEGATIVE) Urine Amphetamine NEGATIVE (NEGATIVE) U Benzodiazepine Level NEGATIVE (NEGATIVE) Urine Cocaine NEGATIVE (NEGATIVE) Urine Marijuana (THC) NEGATIVE (NEGATIVE) 10/09/21 Range/Units 14:35 WBC 6.9 (4.0-10.5) K/mm3 RBC 4.65 (4.1-5.4) M/mm3 Hgb 14.2 (12.0-16.0) gm/dl Hct 42.6 (35-47) % MCV 91.6 (78-100) fl MCH 30.5 (26-32) pg MCHC 33.3 (32-36) g/dl RDW 12.1 (11.5-14.0) % Plt Count 279 (150-450) K/mm3 MPV 9.4 (7.5-11.0) fl Gran % 51.7 (36.0-66.0) % Eos # (Auto) 0.09 (0-0.5) Absolute Lymphs (auto) 2.58 (1.0-4.6) Absolute Monos (auto) 0.63 (0.0-1.3) Lymphocytes % 37.2 (24.0-44.0) % Monocytes % 9.1 (0.0-12.0) % Eosinophils % 1.3 (0.00-5.0) % Basophils % 0.7 (0.0-0.4) % Absolute Granulocytes 3.59 (1.4-6.9) Basophils # 0.05 (0-0.4) Sodium (137-145) mmol/L Potassium (3.5-5.1) mmol/L Chloride (98-107) mmol/L Carbon Dioxide (22-30) mmol/L Anion Gap (5-15) MEQ/L BUN (7-17) mg/dL Creatinine (0.52-1.04) mg/dL Estimated GFR ML/MIN Glucose (74-106) mg/dL Lactic Acid (0.4-2.0) Calcium (8.4-10.2) mg/dL Magnesium (1.6-2.3) mg/dL Total Bilirubin (0.2-1.3) mg/dL AST (14-36) U/L ALT (0-35) U/L Alkaline Phosphatase (38-126) U/L Troponin I (0.000-0.034) ng/mL Serum Total Protein (6.3-8.2) g/dL Albumin (3.5-5.0) g/dL Urinalys Dipstick Clnc Urine Color (YELLOW) Urine Appearance (CLEAR) Urine pH (5-6) Ur Specific [place] (1.005-1.025) POC Urine Protein Conf (Negative) Urine Ketones (NEGATIVE) Urine Nitrite (NEGATIVE) Urine Bilirubin (NEGATIVE) Urine Urobilinogen (0-1) mg/dL Urine Leukocytes (NEGATIVE) Urine WBC (Auto) (0-5) /HPF Urine RBC (Auto) (0-2) /HPF U Epithel Cells (Auto) (FEW) /HPF Urine RBC (0-5) Emaon/ul Ur Culture Indicated? Urine Glucose (NEGATIVE) mg/dL Urine HCG, Qual (Negative) Urine Opiates Level (NEGATIVE) Ur Methadone (NEGATIVE) Urine Barbiturates (NEGATIVE) Ur Phencyclidine (PCP) (NEGATIVE) Urine Amphetamine (NEGATIVE) U Benzodiazepine Level (NEGATIVE) Urine Cocaine (NEGATIVE) Urine Marijuana (THC) (NEGATIVE) - Progress Progress: improved Progress Note: 10/09/21 16:55 31 years old is evaluated for sudden onset dizziness/lightheadedness when she bent over. Nonfocal neuro exam throughout stay in the ER. Negative orthostati cs. EKG showed sinus rhythm without any acute ischemic changes or arrhythmias. Negative troponins. Grossly unremarkable chemistries. Given meclizine and fluids, on reevaluation dizziness is improved. Symptoms are suggestive of peripheral dizziness. Recommended meclizine to take as needed and outpatient follow-up. Discussed signs symptoms of worsening needing return to ER which she seems understanding. Counseled pt/family regarding: lab results, diagnosis, need for follow-up, rad results, smoking cessation - Departure Departure Disposition: Home Clinical Impression: Dizziness, Generalized weakness Condition: Stable Critical Care Time: No Referrals: FREDY HOUSTON [Primary Care Provider] - Follow up/PCP as directed (Tomorrow for reevaluation) Instructions: Vertigo (a Type of Dizziness) (DC) Additional Instructions: Follow-up with primary care physician for reevaluation. Keep yourself well- hydrated. Take meclizine as needed for dizziness. Return to ER for worsening dizziness/lightheadedness, chest pain palpitations, shortness of breath, numbness tingling or focal weakness. Prescriptions: Meclizine HCl 25 mg [Antivert 25 mg] 25 mg PO Q8HPRN PRN #12 tablet PRN Reason: Dizziness
[2021-10-09 14:45] LABS: Absolute Neutrophil Ct (ANC) 3.59 (1.4-6.9); Basophil (Absolute #) 0.05 (0-0.4); Eosinophil % 1.3 % (0.00-5.0); Eosinophil (Absolute #) 0.09 (0-0.5); Hematocrit 42.6 % (35-47); Hemoglobin 14.2 gm/dl (12.0-16.0); Lymphocyte (Absolute #) 2.58 (1.0-4.6); Lymphocytes % 37.2 % (24.0-44.0); Mean Cell Volume 91.6 fl (78-100); Mean Corpuscular Hemoglobin 30.5 pg (26-32); Mean Corpuscular Hgb Concent. 33.3 g/dl (32-36); Mean Platelet Volume 9.4 fl (7.5-11.0); Monocyte (Absolute #) 0.63 (0.0-1.3); Monocytes % 9.1 % (0.0-12.0); Neutrophil % 51.7 % (36.0-66.0); Platelet Count 279 K/mm3 (150-450); Red Blood Count 4.65 M/mm3 (4.1-5.4); Red Cell Distribution Width 12.1 % (11.5-14.0); White Blood Count 6.9 K/mm3 (4.0-10.5)
[2021-10-09] MEDS ORDERED: Sodium Chloride 0.9% 1000 ML 1,000 ML ONE (14:47)
[2021-10-09] MEDS ORDERED: ANTIVERT 25 MG ONE (14:47)
[2021-10-09] MEDS: ANTIVERT 25 MG PO ONE (14:48)
[2021-10-09] MEDS: Sodium Chloride 0.9% 1000 ML 1,000 ML IV STA (14:49)
[2021-10-09 14:52] LABS: Epithelial Cells RARE /HPF (FEW); RBC 0-2 /HPF (0-2)
--- NOTE | 2021-10-09 14:53 | XRAY ---
Indication: Vertigo. Comparison: None Portable chest demonstrates normal heart, lungs, and bony thorax with incidental right base calcified granuloma.
[2021-10-09 14:57] LABS: ALBUMIN 4.7 g/dL (3.5-5.0); ALKALINE PHOSPHATASE 61 U/L (38-126); ANION GAP 14.5 MEQ/L (5-15); BLOOD UREA NITROGEN 11 mg/dL (7-17); CHLORIDE 105 mmol/L (98-107); Calcium 9.8 mg/dL (8.4-10.2); Carbon Dioxide 23 mmol/L (22-30); Creatinine 1 0.58 mg/dL (0.52-1.04); EST GLOMERULAR FILTRATION RATE > 60.0 ML/MIN; Glucose 86 mg/dL (74-106); MAGNESIUM 2.1 mg/dL (1.6-2.3); SGOT/AST 26 U/L (14-36); SGPT/ALT 13 U/L (0-35); SODIUM 138 mmol/L (137-145); Total Protein 7.3 g/dL (6.3-8.2)
[2021-10-09 14:58] LABS: Appearance CLEAR (CLEAR); Bilirubin NEGATIVE (NEGATIVE); Glucose NEGATIVE (NEGATIVE); Ketones NEGATIVE (NEGATIVE)
[2021-10-09 14:59] LABS: Nitrite NEGATIVE (NEGATIVE); Ph 7.5 (5-6); Protein,Urine Dip NEGATIVE (Negative); RBC NEGATIVE Ery/ul (0-5); Specific Gravity 1.015 (1.005-1.025); Urine Cultured Indicated? NO; Urobilinogen 1 mg/dL (0-1)
[2021-10-09 15:00] LABS: Dipstick done @ ? MAIN LAB
[2021-10-09 15:08] LABS: Amphetamine,Urine NEGATIVE (NEGATIVE); Barbiturate,Urine NEGATIVE (NEGATIVE); Benzodiazepine,Urine NEGATIVE (NEGATIVE); Cocaine,Urine NEGATIVE (NEGATIVE); Methadone,Urine NEGATIVE (NEGATIVE); Opiate,Urine NEGATIVE (NEGATIVE); PCP,Urine NEGATIVE (NEGATIVE); THC,Urine NEGATIVE (NEGATIVE)
--- NOTE | 2021-10-09 16:36 | XRAY ---
Indication: Dizziness. Multiple contiguous axial images obtained through the head without contrast. Comparison: None Normal appearing brain parenchyma, ventricles, and bony calvarium. Visualized paranasal sinuses and mastoid air cells are clear. Impression: Normal CT head without contrast exam.
[2021-10-09 17:00] VITALS: O2SAT 100
[2021-10-09 17:05] VITALS: BP 131/89; PULSE 84
== END 2021-10-09 17:15 | disposition home or self-care (01) ==
LOC: ED 13:45
DX: R42 Dizziness and giddiness (principal); R53.1 Weakness; R11.0 Nausea; Z79.899 Other long term (current) drug therapy; Z72.0 Tobacco use
CPT/HCPCS: 36000; 36415; 70450; 71045; 80053; 80307; 81015; 83605; 83735; 84484; 84703; 85025; 93005; 93041; 96360; 99284; A9270-GY

== ENCOUNTER 2022-04-14 10:07 | Emergency (ER) | payer OTHER ==
[2022-04-14] MEDS ORDERED: Reglan 10 MG/2 ML IV ONE (10:20)
[2022-04-14] MEDS ORDERED: Hydromorphone 1 mg/ml Injection IV ONE ×2 (10:20→15:16)
[2022-04-14] MEDS ORDERED: Sodium Chloride 0.9% 1000 ML 1,000 ML IV STA (10:20)
[2022-04-14 10:39] LABS: Basophil (Absolute #) 0.05 x10^3/uL (0-0.4); Eosinophil % 0.2 % (0.00-5.0); Eosinophil (Absolute #) 0.02 x10^3/uL (0-0.5); Hematocrit 37.7 % (35-47); Hemoglobin 12.7 g/dL (12.0-16.0); Lymphocyte (Absolute #) 2.34 x10^3/uL (1.0-4.6); Lymphocytes % 19.8 % (24.0-44.0); Mean Cell Volume 92.9 fL (78-100); Mean Corpuscular Hemoglobin 31.3 pg (26-32); Mean Corpuscular Hgb Concent. 33.7 g/dL (32-36); Mean Platelet Volume 9.1 fL (7.5-11.0); Monocyte (Absolute #) 0.88 x10^3/uL (0.0-1.3); Monocytes % 7.4 % (0.0-12.0); Neutrophil % 71.9 % (36.0-66.0); Platelet Count 253 x10^3/uL (150-450); Red Blood Count 4.06 x10^6/uL (4.1-5.4); Red Cell Distribution Width 12.5 % (11.5-14.0); White Blood Count 11.8 x10^3/uL (4.0-10.5)
[2022-04-14] MEDS ORDERED: Hydromorphone 1 mg/ml Injection ONE ×2 (10:51→15:17)
[2022-04-14] MEDS ORDERED: Reglan 10 MG/2 ML ONE (10:51)
[2022-04-14] MEDS ORDERED: Sodium Chloride 0.9% 1000 ML 1,000 ML ONE (10:51)
[2022-04-14 10:53] LABS: ALBUMIN 4.7 g/dL (3.5-5.0); ALKALINE PHOSPHATASE 87 U/L (38-126); AMYLASE 72 U/L (30-110); ANION GAP 13.6 MEQ/L (5-15); BLOOD UREA NITROGEN 9 mg/dL (7-17); CHLORIDE 104 mmol/L (98-107); Calcium 9.1 mg/dL (8.4-10.2); Carbon Dioxide 24 mmol/L (22-30); Creatinine 1 0.56 mg/dL (0.52-1.04); EST GLOMERULAR FILTRATION RATE > 60.0 ML/MIN; Glucose 81 mg/dL (74-106); LIPASE 137 U/L (23-300); Potassium 3.7 mmol/L (3.5-5.1); SGOT/AST 29 U/L (14-36); SGPT/ALT 22 U/L (0-35); SODIUM 139 mmol/L (137-145); Total Protein 7.5 g/dL (6.3-8.2)
--- NOTE | 2022-04-14 11:30 | ERPHSYRPT ---
- History of Present Illness Time Seen by Provider: 04/14/22 10:20 Historian: patient Exam Limitations: no limitations Patient Subjective Stated Complaint: Pt states "At 3 am this morning I started to haave horrible abdominal pain on the lower left and now it is over on my right side." Triage Nursing Assessment: Pt presented alert and oriented X 3, skin pwd Pt ambulates with an upright steady gait, able to speak in clear full sentences pt in no apparent respiratory distress. Pt texting and resting comfortably on the bed Physician History: Patient is a 31-year-old white female who presents with abdominal pain. She states she awoke with pain at 3 AM initially the pain was in the left lower quadrant then it moved to the right lower quadrant and is now most sensitive over the right upper quadrant she has a history of polycystic ovary disease and has had multiple ruptured cyst. She had an ultrasound done few weeks ago which showed no cyst at that time. She has had nausea but no vomiting or diarrhea no fever chills or sweats. Her pain is increased with movement. Allergies/Adverse Reactions: No Known Drug Allergies Allergy (Verified 10/09/21 14:01) Home Medications: Hydroxyzine HCl 25 mg [Atarax 25 mg] 25 mg PO TID PRN 10/09/21 [History] Norethindrone-E.estradiol-Iron [Junel Fe 1 mg-20 Mcg Tablet] 1 tab PO DAILY 10/09/21 [History] Paroxetine HCl 20 mg [Paxil 20 MG] 20 mg PO DAILY 10/09/21 [History] Hx Tetanus, Diphtheria Vaccination/Date Given: No Hx Influenza Vaccination/Date Given: Yes Hx Pneumococcal Vaccination/Date Given: No Immunizations Up to Date: Yes Travel Risk - International Travel Have you traveled outside of the country in past 3 weeks: No - Coronavirus Screening Are you exhibiting any of the following symptoms?: No Close contact with a COVID-19 positive Pt in past 14-21 Days: No - Vaccine Status Have you recieved a Covid-19 vaccination: No - Review of Systems Constitutional: No Fever, No Chills Eyes: No Symptoms Ears, Nose, & Throat: No Symptoms Respiratory: No Cough, No Dyspnea Cardiac: No Chest Pain, No Edema, No Syncope Abdominal/Gastrointestinal: Abdominal Pain, Nausea, No Vomiting, No Diarrhea Genitourinary Symptoms: No Dysuria Musculoskeletal: No Back Pain, No Neck Pain Skin: No Rash Neurological: No Dizziness, No Focal Weakness, No Sensory Changes Psychological: No Symptoms Endocrine: No Symptoms All Other Systems: Reviewed and Negative - Past Medical History Pertinent Past Medical History: Yes Neurological History: No Pertinent History ENT History: No Pertinent History Cardiac History: No Pertinent History Respiratory History: No Pertinent History Endocrine Medical History: Hypothyroidism Musculoskeletal History: No Pertinent History GI Medical History: No Pertinent History History: No Pertinent History Psycho-Social History: Anxiety, Depression Female Reproductive Disorders: No Pertinent History Other Medical History: right knee pain - Past Surgical History Past Surgical History: Yes Neuro Surgical History: No Pertinent History Cardiac: No Pertinent History Respiratory: No Pertinent History Gastrointestinal: No Pertinent History Genitourinary: No Pertinent History Musculoskeletal: No Pertinent History Female Surgical History: Section - Social History Smoking Status: Current every day smoker How long have you smoked: 10 years Exposure to second hand smoke: No Drug Use: none Patient Lives Alone: No - Female History Hx Last Menstrual Period: mirena Hx Now: No - Nursing Vital Signs Nursing Vital Signs: Initial Vital Signs Temperature 97.7 F 04/14/22 10:14 Pulse Rate 107 H 04/14/22 10:14 Respiratory Rate 18 04/14/22 10:14 Blood Pressure 134/87 04/14/22 10:14 O2 Sat by Pulse Oximetry 100 04/14/22 10:14 Pain Scale Pain Intensity 5 - Physical Exam General Appearance: moderate distress, alert Eye Exam: PERRL/EOMI, eyes nml inspection Ears, Nose, Throat Exam: normal ENT inspection, pharynx normal, moist mucous membranes Neck Exam: normal inspection, non-tender, supple, full range of motion Respiratory Exam: normal breath sounds, lungs clear, No respiratory distress Cardiovascular Exam: regular rate/rhythm, normal heart sounds Gastrointestinal/Abdomen Exam: tenderness, guarding, rebound, other (Decreased bowel sounds), No mass Pelvic Exam: not done Rectal Exam: deferred Back Exam: normal inspection, normal range of motion, No CVA tenderness, No vertebral tenderness Extremity Exam: normal inspection, normal range of motion, pelvis stable Neurologic Exam: alert, oriented x 3, cooperative, normal mood/affect, nml cerebellar function, sensation nml, No motor deficits Skin Exam: normal color, warm, dry SpO2 Interpretation: normal SpO2: 99 O2 Delivery: Room Air - Course Nursing assessment & vital signs reviewed: Yes - CT Exams Abdomen/Pelvis CT Interpretation: Other (Significant amount of fluid in the pelvis either blood/hematoma or infected fluid/abscess.) Ordered Tests: Active Orders 24 hr Category Date Time Status IV Insertion STAT Care 04/14/22 10:20 Active ABDOMEN AND PELVIS W/0 CONTRAS [CT] Stat Exams 04/14/22 10:21 Completed CHEST 1 VIEW (PORTABLE) Stat Exams 04/14/22 10:21 Completed AMYLASE Stat Lab 04/14/22 10:20 Completed CBC Stat Lab 04/14/22 12:57 Completed CBC W DIFF Stat Lab 04/14/22 10:20 Completed CMP Stat Lab 04/14/22 10:20 Completed HCG QUALITATIVE,SERUM Stat Lab 04/14/22 11:47 Completed LIPASE Stat Lab 04/14/22 10:20 Completed Lactic Acid Stat Lab 04/14/22 10:30 Completed Urine Triage Profile Stat Lab 04/14/22 10:21 Ordered Medication Summary Discontinued Medications Generic Name Dose Route Start Last Admin Trade Name Princeq PRN Reason Stop Dose Admin Hydromorphone HCl 1 mg 04/14/22 10:20 04/14/22 10:54 Hydromorphone 1 Mg/1ml Inj 1 Mg/Ml Syringe IV 04/14/22 10:21 1 mg STAT ONE Administration Hydromorphone HCl Confirm 04/14/22 10:51 Hydromorphone 1 Mg/1ml Inj 1 Mg/Ml Syringe Administered 04/14/22 10:52 Dose 1 mg .ROUTE .STK-MED ONE Sodium Chloride 1,000 mls @ 999 mls/hr 04/14/22 10:20 04/14/22 12:16 Sodium Chloride 0.9% 1000 Ml IV 04/14/22 11:20 Infused .Q1H1M STA Infusion Sodium Chloride Confirm 04/14/22 10:51 Sodium Chloride 0.9% 1000 Ml Administered 04/14/22 10:52 Dose 1,000 mls @ ud .ROUTE .STK-MED ONE Metoclopramide HCl 10 mg 04/14/22 10:20 04/14/22 10:54 Metoclopramide Hcl 10 Mg/2 Ml Vial IV 04/14/22 10:21 10 mg STAT ONE Administration Metoclopramide HCl Confirm 04/14/22 10:51 Metoclopramide Hcl 10 Mg/2 Ml Vial Administered 04/14/22 10:52 Dose 10 mg .ROUTE .STK-MED ONE Lab/Rad Data: Laboratory Result Diagrams 04/14/22 12:57 04/14/22 10:20 Laboratory Results 04/14/22 04/14/22 04/14/22 Range/Units 12:57 11:47 10:30 WBC 10.2 (4.0-10.5) x10^3/uL RBC 3.31 L (4.1-5.4) x10^6/uL Hgb 10.4 L (12.0-16.0) g/dL Hct 32.1 L (35-47) % MCV 97.0 (78-100) fL MCH 31.4 (26-32) pg MCHC 32.4 (32-36) g/dL RDW 12.4 (11.5-14.0) % Plt Count 219 (150-450) x10^3/uL MPV 9.0 (7.5-11.0) fL Gran % (36.0-66.0) % Immature Gran % (Auto) (0.00-0.4) % Nucleat RBC Rel Count (0.00-0.1) % Eos # (Auto) (0-0.5) x10^3/uL Immature Gran # (Auto) (0.00-0.03) x10^3u/L Absolute Lymphs (auto) (1.0-4.6) x10^3/uL Absolute Monos (auto) (0.0-1.3) x10^3/uL Absolute Nucleated RBC (0.00-0.01) x10^3u/L Lymphocytes % (24.0-44.0) % Monocytes % (0.0-12.0) % Eosinophils % (0.00-5.0) % Basophils % (0.0-0.4) % Absolute Granulocytes (1.4-6.9) x10^3/uL Basophils # (0-0.4) x10^3/uL Sodium (137-145) mmol/L Potassium (3.5-5.1) mmol/L Chloride (98-107) mmol/L Carbon Dioxide (22-30) mmol/L Anion Gap (5-15) MEQ/L BUN (7-17) mg/dL Creatinine (0.52-1.04) mg/dL Estimated GFR ML/MIN Glucose (74-106) mg/dL Lactic Acid 1.1 (0.4-2.0) Calcium (8.4-10.2) mg/dL Total Bilirubin (0.2-1.3) mg/dL AST (14-36) U/L ALT (0-35) U/L Alkaline Phosphatase (38-126) U/L Serum Total Protein (6.3-8.2) g/dL Albumin (3.5-5.0) g/dL Amylase (30-110) U/L Lipase (23-300) U/L Serum , Qual NEGATIVE (Negative) 04/14/22 04/14/22 Range/Units 10:20 10:20 WBC 11.8 H (4.0-10.5) x10^3/uL RBC 4.06 L (4.1-5.4) x10^6/uL Hgb 12.7 (12.0-16.0) g/dL Hct 37.7 (35-47) % MCV 92.9 (78-100) fL MCH 31.3 (26-32) pg MCHC 33.7 (32-36) g/dL RDW 12.5 (11.5-14.0) % Plt Count 253 (150-450) x10^3/uL MPV 9.1 (7.5-11.0) fL Gran % 71.9 H (36.0-66.0) % Immature Gran % (Auto) 0.3 (0.00-0.4) % Nucleat RBC Rel Count 0.0 (0.00-0.1) % Eos # (Auto) 0.02 (0-0.5) x10^3/uL Immature Gran # (Auto) 0.04 H (0.00-0.03) x10^3u/L Absolute Lymphs (auto) 2.34 (1.0-4.6) x10^3/uL Absolute Monos (auto) 0.88 (0.0-1.3) x10^3/uL Absolute Nucleated RBC 0.00 (0.00-0.01) x10^3u/L Lymphocytes % 19.8 L (24.0-44.0) % Monocytes % 7.4 (0.0-12.0) % Eosinophils % 0.2 (0.00-5.0) % Basophils % 0.4 (0.0-0.4) % Absolute Granulocytes 8.50 H (1.4-6.9) x10^3/uL Basophils # 0.05 (0-0.4) x10^3/uL Sodium 139 (137-145) mmol/L Potassium 3.7 (3.5-5.1) mmol/L Chloride 104 (98-107) mmol/L Carbon Dioxide 24 (22-30) mmol/L Anion Gap 13.6 (5-15) MEQ/L BUN 9 (7-17) mg/dL Creatinine 0.56 (0.52-1.04) mg/dL Estimated GFR > 60.0 ML/MIN Glucose 81 (74-106) mg/dL Lactic Acid (0.4-2.0) Calcium 9.1 (8.4-10.2) mg/dL Total Bilirubin 1.80 H (0.2-1.3) mg/dL AST 29 (14-36) U/L ALT 22 (0-35) U/L Alkaline Phosphatase 87 (38-126) U/L Serum Total Protein 7.5 (6.3-8.2) g/dL Albumin 4.7 (3.5-5.0) g/dL Amylase 72 (30-110) U/L Lipase 137 (23-300) U/L Serum , Qual (Negative) - Progress Progress: unchanged Progress Note: 04/14/22 13:[address] Hutchinson the findings we had on his patient she has dropped to grams of hemoglobin since she has been here and she will be transferred to [facility]. - Departure Departure Disposition: Transfer (Patient will be transferred to [facility] Dr. Hutchinson excepting) Clinical Impression: Pelvic pain, Hemorrhage of pelvic artery Condition: Fair Critical Care Time: No Referrals: FREDY HOUSTON [Primary Care Provider] - Follow up/PCP as directed
--- NOTE | 2022-04-14 12:34 | XRAY ---
Indication: Abdomen/right flank pain. Nausea. Multiple contiguous axial images obtained through the abdomen and pelvis without contrast. Comparison: September 12, 2020 Lung bases demonstrates stable right lower lobe calcified granuloma. Heart not enlarged. New small hiatal hernia. Pelvis demonstrates new very large complex fluid collection throughout. Subtle hyperdensity layers posteriorly. Also new smaller free fluid throughout the abdomen. Etiology unknown on this noncontrast exam. Hemorrhage/hematoma versus infected fluid collection/abscess is offered for clinical consideration. Appendix not seen. No free air. Noncontrasted stomach and bowel loops appear nonobstructed. Several jejunal bowel loops demonstrate circumferential wall thickening either reactive versus enteritis. Uterus again demonstrates IUD in situ. Stable small left renal cyst with punctate calcification. Remaining liver, gallbladder, pancreas, spleen, adrenal glands, kidneys, ureters, bladder, and aorta are unremarkable for noncontrast exam. Osseous structures intact. Impression: 1. New large heterogeneous pelvic fluid collection as detailed with smaller free fluid in the abdomen. On this noncontrast exam, partial differential offered includes hemorrhage/hematoma versus infected fluid collection/abscess. 2. New small hiatal hernia. 3. Again incidental right lower lobe calcified granuloma and slightly complex left renal cyst. Comment: Telephone report was given to Dr. Lehman in the ER at 1225 hrs. on April 14, 2022.
--- NOTE | 2022-04-14 12:36 | XRAY ---
Indication: Right chest pain. Comparison: None Portable chest demonstrates normal heart, lungs, and bony thorax with incidental tiny right base calcified granuloma.
[2022-04-14 13:08] LABS: Hematocrit 32.1 % (35-47); Hemoglobin 10.4 g/dL (12.0-16.0); Mean Corpuscular Hemoglobin 31.4 pg (26-32); Mean Corpuscular Hgb Concent. 32.4 g/dL (32-36); Platelet Count 219 x10^3/uL (150-450); Red Blood Count 3.31 x10^6/uL (4.1-5.4); Red Cell Distribution Width 12.4 % (11.5-14.0); White Blood Count 10.2 x10^3/uL (4.0-10.5)
[2022-04-14 15:17] VITALS: BP 122/78; PULSE 92; O2SAT 100
[2022-04-14 15:43] LABS: Amphetamine,Urine NEGATIVE (NEGATIVE); Barbiturate,Urine NEGATIVE (NEGATIVE); Benzodiazepine,Urine NEGATIVE (NEGATIVE); Cocaine,Urine NEGATIVE (NEGATIVE); Methadone,Urine NEGATIVE (NEGATIVE); Opiate,Urine POSITIVE (NEGATIVE); PCP,Urine NEGATIVE (NEGATIVE); THC,Urine NEGATIVE (NEGATIVE)
== END 2022-04-14 15:47 | disposition short-term general hospital (02) ==
LOC: ED 10:07
DX: R58 Hemorrhage, not elsewhere classified (principal); R10.2 Pelvic and perineal pain; R10.11 Right upper quadrant pain; R11.0 Nausea; Z72.0 Tobacco use; Z79.899 Other long term (current) drug therapy; Z28.310 Unvaccinated for COVID-19
CPT/HCPCS: 36000; 36415; 71045; 74176; 80053; 80307; 82150; 83605; 83690; 84703; 85025; 85027; 96360; 96374; 96375; 96376; 99285; J1170

== ENCOUNTER 2024-07-28 11:01 | Emergency (ER) | payer OTHER ==
[2024-07-28 11:14] VITALS: PULSE 78; RESP 20; TEMP 97.2
[2024-07-28] MEDS ORDERED: Zofran 4 MG/2 ML VIAL ONE (11:53)
[2024-07-28] MEDS ORDERED: MORPHINE SULFATE 4 MG INJ ONE (11:53)
[2024-07-28] MEDS ORDERED: Sodium Chloride 0.9% 1000 ML 1,000 ML ONE (11:53)
[2024-07-28 11:54] LABS: Absolute Neutrophil Ct (ANC) 4.79 x10^3/uL (1.56-6.13); BASOPHIL % 0.8 % (0.1-1.2); Basophil (Absolute #) 0.06 x10^3/uL (0.01-0.08); Eosinophil % 1.3 % (0.7-5.8); Hematocrit 40.6 % (34.1-44.9); Hemoglobin 13.7 g/dL (11.2-15.7); IMMATURE GRAN # 0.02 x10^3u/L (0.001-0.031); IMMATURE GRAN % 0.3 % (0.001-0.429); Lymphocyte (Absolute #) 2.36 x10^3/uL (1.18-3.74); Lymphocytes % 29.7 % (19.3-51.7); Mean Corpuscular Hemoglobin 30.7 pg (25.6-32.2); Mean Corpuscular Hgb Concent. 33.7 g/dL (32.2-35.5); Mean Platelet Volume 9.2 fL (9.4-12.3); Monocyte (Absolute #) 0.62 x10^3/uL (0.24-0.86); Monocytes % 7.8 % (4.7-12.5); Neutrophil % 60.1 % (34.0-71.1); Platelet Count 311 x10^3/uL (182-369); Red Blood Count 4.46 x10^6/uL (3.93-5.22)
[2024-07-28] MEDS: Zofran 4 MG/2 ML VIAL IV ONE (11:59)
[2024-07-28] MEDS: MORPHINE SULFATE 4 MG INJ IV ONE (11:59)
[2024-07-28 12:01] LABS: Appearance Clear (Clear); Bacteria Few /HPF (None Seen); Bilirubin Negative (Negative); Blood Negative (Negative); Epithelial Cells Rare /HPF (None Seen); Glucose, Urine Negative (Negative); Hyaline Casts NONE SEEN /LPF (0-2); Ketones Negative (Negative); Leukocyte Esterase Negative (Negative); Nitrite Negative (Negative); Ph 6.5 (4.6-8.0); Protein,Urine Dip Negative (Negative); RBC 0-2 /HPF (0-5); Specific Gravity <=1.005 (1.005-1.030); Urobilinogen 0.2 mg/dL (0.2)
[2024-07-28] MEDS: Sodium Chloride 0.9% 1000 ML 1,000 ML IV STA (12:01)
[2024-07-28 12:08] LABS: ALBUMIN 4.3 g/dL (3.5-5.0); ANION GAP 9.5 MEQ/L (5-15); BILIRUBIN,TOTAL 0.9 mg/dL (0.2-1.3); Calcium 9.4 mg/dL (8.4-10.2); Creatinine 1 0.64 mg/dL (0.52-1.04); EST GLOMERULAR FILTRATION RATE 118.1 ML/MIN; Potassium 3.6 mmol/L (3.5-5.1); Total Protein 6.8 g/dL (6.3-8.2)
[2024-07-28 12:11] LABS: HCG SERUM TEST NEGATIVE (NEGATIVE)
--- NOTE | 2024-07-28 12:39 | ERPHSYRPT ---
- History of Present Illness Time Seen by Provider: 07/28/24 11:14 Source: patient Exam Limitations: no limitations Patient Subjective Stated Complaint: Pelvic/flank pain left side Triage Nursing Assessment: Patient ambulated back to ED and transferred self to bed. Patient A+O X 3. Patient's skin pink, warm and dry. Patient complains of left lower pelvic/flank pain 7/10 that started last night and has gotten worse today. Patient denies N/V or diarrhea. Abdomen soft and round with BS X 4. Physician History: 33 years old female with history of PCOS presented in the ER with left pelvic pain moderate intensity sharp starting since last night and got worse earlier at work. Aggravated with palpation movements, stretching and partially relieved with holding right thigh closer to abdominal wall. Denies any vaginal bleeding or discharge. Does have history of multiple ovarian cysts in the past. Patient denies any urinary complaints. No history of kidney stones. Denies any nausea vomiting diarrhea or constipation. Allergies/Adverse Reactions: No Known Drug Allergies Allergy (Verified 07/28/24 11:07) Home Medications: Hydroxyzine HCl 25 mg [Atarax 25 mg] 25 mg PO TID PRN 10/09/21 [History] Hx Tetanus, Diphtheria Vaccination/Date Given: No Hx Influenza Vaccination/Date Given: No Hx Pneumococcal Vaccination/Date Given: No Travel Risk - International Travel Have you traveled outside of the country in past 3 weeks: No - Emerging Infectious Disease Are you exhibiting symptoms associated with any current EIDs: No - Review of Systems Constitutional: No Symptoms Ears, Nose, & Throat: No Symptoms Respiratory: No Symptoms Cardiac: No Symptoms Abdominal/Gastrointestinal: Abdominal Pain Genitourinary Symptoms: Other (Pelvic pain) Musculoskeletal: No Symptoms Skin: No Symptoms Neurological: No Symptoms Endocrine: No Symptoms Hematologic/Lymphatic: No Symptoms - Past Medical History Pertinent Past Medical History: Yes Neurological History: No Pertinent History ENT History: No Pertinent History Cardiac History: No Pertinent History Respiratory History: No Pertinent History Endocrine Medical History: Hypothyroidism Musculoskeletal History: No Pertinent History GI Medical History: No Pertinent History History: No Pertinent History Psycho-Social History: Anxiety, Depression Female Reproductive Disorders: No Pertinent History Other Medical History: right knee pain - Past Surgical History Past Surgical History: Yes Neuro Surgical History: No Pertinent History Cardiac: No Pertinent History Respiratory: No Pertinent History Gastrointestinal: No Pertinent History Genitourinary: No Pertinent History Musculoskeletal: No Pertinent History Female Surgical History: Section, Tubal Ligation Other Surgical History: Ablation. removal of right fallopian tubal. hx of kidney stones and ovarian cyst - Female History Hx Last Menstrual Period: ablation Hx Now: No - Social History Smoking Status: Former smoker How long have you smoked: 10 years Exposure to second hand smoke: No Drug Use: none Patient Lives Alone: No - Social Determinants of Health Will the patient participate in the screening: Yes Do you worry about a steady place to live?: No Do you have any problems with any of the following?: No known problems In the past 12 months,have you had to go without utilities?: No Transportation Issues: No Has anyone in your support network made you feel unsafe?: No Have you or anyone in your house had to go without enough: No - Nursing Vital Signs Nursing Vital Signs: Initial Vital Signs Blood Pressure 121/90 07/28/24 11:07 O2 Sat by Pulse Oximetry 99 07/28/24 11:07 Pain Scale Pain Intensity 0 - Physical Exam General Appearance: no apparent distress Ears, Nose, Throat Exam: normal ENT inspection Neck Exam: normal inspection, full range of motion Respiratory Exam: normal breath sounds, lungs clear Cardiovascular Exam: regular rate/rhythm, normal heart sounds Gastrointestinal/Abdomen Exam: soft, normal bowel sounds, tenderness (Left lower quadrant/pelvic area) Extremity Exam: normal inspection, normal range of motion Neurologic Exam: alert, oriented x 3, cooperative Skin Exam: normal color SpO2 Interpretation: normal SpO2: 99 O2 Delivery: Room Air Ordered Tests: Active Orders 24 hr Category Date Time Status IV Insertion STAT Care 07/28/24 11:31 Active NPO (ED) STAT Care 07/28/24 11:31 Active ABDOMEN AND PELVIS W/0 CONTRAS [CT] Stat Exams 07/28/24 13:16 Completed PELVIS TRANS VAGINAL [US] Stat Exams 07/28/24 11:32 Completed CBC W DIFF Stat Lab 07/28/24 11:48 Completed CMP Stat Lab 07/28/24 11:48 Completed HCG QUALITATIVE, SERUM Stat Lab 07/28/24 11:48 Completed UA W/RFX UR CULTURE Stat Lab 07/28/24 11:35 Completed Medication Summary Discontinued Medications Generic Name Dose Route Start Last Admin Trade Name Freq PRN Reason Stop Dose Admin Sodium Chloride 1,000 mls @ 999 mls/hr 07/28/24 11:31 07/28/24 13:10 Sodium Chloride 0.9% 1000 Ml IV 07/28/24 12:31 Infused .Q1H1M STA Infusion Sodium Chloride Confirm 07/28/24 11:53 Sodium Chloride 0.9% 1000 Ml Administered 07/28/24 11:54 Dose 1,000 mls @ ud .ROUTE .STK-MED ONE Ketorolac Tromethamine 30 mg 07/28/24 13:16 07/28/24 13:21 Ketorolac Tromethamine 30 Mg/Ml Inj IV 07/28/24 13:17 30 mg STAT ONE Administration Ketorolac Tromethamine Confirm 07/28/24 13:20 Ketorolac Tromethamine 30 Mg/Ml Inj Administered 07/28/24 13:21 Dose 30 mg .ROUTE .STK-MED ONE Morphine Sulfate 4 mg 07/28/24 11:31 07/28/24 11:59 Morphine Sulfate 4 Mg/Ml Injection IV 07/28/24 11:32 4 mg STAT ONE Administration Morphine Sulfate Confirm 07/28/24 11:53 Morphine Sulfate 4 Mg/Ml Injection Administered 07/28/24 11:54 Dose 4 mg .ROUTE .STK-MED ONE Ondansetron HCl 4 mg 07/28/24 11:31 07/28/24 11:59 Ondansetron Hcl 4 Mg/2 Ml Vial IV 07/28/24 11:32 4 mg STAT ONE Administration Ondansetron HCl Confirm 07/28/24 11:53 Ondansetron Hcl 4 Mg/2 Ml Vial Administered 07/28/24 11:54 Dose 4 mg .ROUTE .STK-MED ONE Lab/Rad Data: Laboratory Result Diagrams 07/28/24 11:48 07/28/24 11:48 Laboratory Results 07/28/24 07/28/24 07/28/24 Range/Units 11:48 11:48 11:48 WBC 8.0 (3.98-10.04) x10^3/uL RBC 4.46 (3.93-5.22) x10^6/uL Hgb 13.7 (11.2-15.7) g/dL Hct 40.6 (34.1-44.9) % MCV 91.0 (79.4-94.8) fL MCH 30.7 (25.6-32.2) pg MCHC 33.7 (32.2-35.5) g/dL RDW 12.0 (11.7-14.4) % Plt Count 311 (182-369) x10^3/uL MPV 9.2 L (9.4-12.3) fL Gran % 60.1 (34.0-71.1) % Immature Gran % (Auto) 0.3 (0.001-0.429) % Nucleat RBC Rel Count 0.0 (0.00-0.2) % Eos # (Auto) 0.10 (0.04-0.36) x10^3/uL Immature Gran # (Auto) 0.02 (0.001-0.031) x10^3u/L Absolute Lymphs (auto) 2.36 (1.18-3.74) x10^3/uL Absolute Monos (auto) 0.62 (0.24-0.86) x10^3/uL Absolute Nucleated RBC 0.00 (0.00-0.012) x10^3u/L Lymphocytes % 29.7 (19.3-51.7) % Monocytes % 7.8 (4.7-12.5) % Eosinophils % 1.3 (0.7-5.8) % Basophils % 0.8 (0.1-1.2) % Absolute Granulocytes 4.79 (1.56-6.13) x10^3/uL Basophils # 0.06 (0.01-0.08) x10^3/uL Sodium 138 (135-145) mmol/L Potassium 3.6 (3.5-5.1) mmol/L Chloride 108 H (98-107) mmol/L Carbon Dioxide 25 (22-30) mmol/L Anion Gap 9.5 (5-15) MEQ/L BUN 10 (7-17) mg/dL Creatinine 0.64 (0.52-1.04) mg/dL Estimated GFR 118.1 ML/MIN Glucose 82 (74-106) mg/dL Calcium 9.4 (8.4-10.2) mg/dL Total Bilirubin 0.90 (0.2-1.3) mg/dL AST 33 (14-36) U/L ALT 19 (0-35) U/L Alkaline Phosphatase 53 (38-126) U/L Serum Total Protein 6.8 (6.3-8.2) g/dL Albumin 4.3 (3.5-5.0) g/dL Serum HCG, Qual NEGATIVE (NEGATIVE) Urine Color (Yellow) Urine Appearance (Clear) Urine pH (4.6-8.0) Ur Specific [place] (1.005-1.030) Urine Protein (Negative) Urine Glucose (UA) (Negative) mg/dL Urine Ketones (Negative) Urine Blood (Negative) Urine Nitrite (Negative) Urine Bilirubin (Negative) Urine Urobilinogen (0.2) mg/dL Ur Leukocyte Esterase (Negative) U Hyaline Cast (Auto) (0-2) /LPF Urine Microscopic RBC (0-5) /HPF Urine Microscopic WBC (0-5) /HPF Ur Epithelial Cells (None Seen) /HPF Urine Bacteria (None Seen) /HPF Urine Culture Reflexed (NO) 07/28/24 Range/Units 11:35 WBC (3.98-10.04) x10^3/uL RBC (3.93-5.22) x10^6/uL Hgb (11.2-15.7) g/dL Hct (34.1-44.9) % MCV (79.4-94.8) fL MCH (25.6-32.2) pg MCHC (32.2-35.5) g/dL RDW (11.7-14.4) % Plt Count (182-369) x10^3/uL MPV (9.4-12.3) fL Gran % (34.0-71.1) % Immature Gran % (Auto) (0.001-0.429) % Nucleat RBC Rel Count (0.00-0.2) % Eos # (Auto) (0.04-0.36) x10^3/uL Immature Gran # (Auto) (0.001-0.031) x10^3u/L Absolute Lymphs (auto) (1.18-3.74) x10^3/uL Absolute Monos (auto) (0.24-0.86) x10^3/uL Absolute Nucleated RBC (0.00-0.012) x10^3u/L Lymphocytes % (19.3-51.7) % Monocytes % (4.7-12.5) % Eosinophils % (0.7-5.8) % Basophils % (0.1-1.2) % Absolute Granulocytes (1.56-6.13) x10^3/uL Basophils # (0.01-0.08) x10^3/uL Sodium (135-145) mmol/L Potassium (3.5-5.1) mmol/L Chloride (98-107) mmol/L Carbon Dioxide (22-30) mmol/L Anion Gap (5-15) MEQ/L BUN (7-17) mg/dL Creatinine (0.52-1.04) mg/dL Estimated GFR ML/MIN Glucose (74-106) mg/dL Calcium (8.4-10.2) mg/dL Total Bilirubin (0.2-1.3) mg/dL AST (14-36) U/L ALT (0-35) U/L Alkaline Phosphatase (38-126) U/L Serum Total Protein (6.3-8.2) g/dL Albumin (3.5-5.0) g/dL Serum HCG, Qual (NEGATIVE) Urine Color Yellow (Yellow) Urine Appearance Clear (Clear) Urine pH 6.5 (4.6-8.0) Ur Specific [place] <=1.005 (1.005-1.030) Urine Protein Negative (Negative) Urine Glucose (UA) Negative (Negative) mg/dL Urine Ketones Negative (Negative) Urine Blood Negative (Negative) Urine Nitrite Negative (Negative) Urine Bilirubin Negative (Negative) Urine Urobilinogen 0.2 (0.2) mg/dL Ur Leukocyte Esterase Negative (Negative) U Hyaline Cast (Auto) NONE SEEN (0-2) /LPF Urine Microscopic RBC 0-2 (0-5) /HPF Urine Microscopic WBC 3-5 (0-5) /HPF Ur Epithelial Cells Rare (None Seen) /HPF Urine Bacteria Few A (None Seen) /HPF Urine Culture Reflexed NO (NO) - Progress Progress: re-examined Air Movement: good Progress Note: 07/28/24 14:51 33-year-old with history of PCOS is evaluated in the ER for left pelvic pain. She has tenderness left lower quadrant/pelvic area. No UTI symptoms. She is given fluids and symptomatic treatment, reevaluation she is feeling much better. Workup showed normal white count, chemistries fairly unremarkable and no UTI. Ultrasound pelvis showed no torsion but small amount of cul-de-sac fluid CT showed mild constipation and some cul-de-sac fluid and nonobstructive left renal calculus. I believe patient has ruptured cyst causing her symptoms. Recommended taking Tylenol ibuprofen, do not think patient needs any other workup and can be discharged with outpatient primary care/OB for [facility] follow-up. Discussed signs symptoms of worsening needing return to ER which she seems understanding. Stable for discharge. Blood Culture(s) Obtained: No Antibiotics given: No Counseled pt/family regarding: lab results, diagnosis, need for follow-up, rad results Medical Desision Making - Diagnostic Testing Diagnostic test were ordered, analyzed, and reviewed by me: Yes Radiological Interpretation: Reviewed by me - Risk of complications The pt has a mod risk of morbidity or mortality based on: Need for prescription drug management - Departure Departure Disposition: Home Clinical Impression: Ruptured ovarian cyst, Constipation, Pelvic pain Condition: Stable Critical Care Time: No Referrals: FREDY HOUSTON [Primary Care Provider] - Follow up with PCP 1 day Instructions: Ovarian cyst - ED discharge instructions Additional Instructions: Take Tylenol/ibuprofen as needed. Follow-up with your primary care and [facility] for reevaluation. Return to ER for intractable pain, vomiting, vaginal bleeding etc. Take daily MiraLAX and stool softener. Prescriptions: Ibuprofen 600 mg PO Q6HPRN PRN 10 Days #20 tablet PRN Reason: Pain
--- NOTE | 2024-07-28 12:49 | XRAY ---
Indication: Left-sided pain. Two-dimensional transvaginal pelvic sonogram performed. Comparison: July 29, 2022 Uterus again anteverted measuring 7.2 x 4.0 x 5.1 cm. No focal solid/cystic uterine mass. Previous IUD has been removed. Endometrial stripe measures 3.3 mm. No endometrial cavity mass or fluid collection. Left ovary measures 3.7 x 2.5 x 4.1 cm and demonstrates normal perfusion. Nonvisualization right ovary. Tiny cul-de-sac fluid presumed physiologic from rupture/sequences. Impression: Nonvisualization right ovary. Tiny physiologic cul-de-sac fluid. Remaining transvaginal pelvic sonogram is negative.
[2024-07-28] MEDS ORDERED: TORAdol 30 mg Injection ONE (13:20)
[2024-07-28] MEDS: TORAdol 30 mg Injection IV ONE (13:21)
[2024-07-28 14:32] VITALS: BP 121/81
--- NOTE | 2024-07-28 14:42 | XRAY ---
Indication: Left pain. Hematuria. Right oophorectomy. Multiple contiguous axial images obtained through the abdomen and pelvis without contrast. Comparison: July 17, 2022. Lung bases clear again with incidental small right lower lobe calcified granuloma. Heart not enlarged. Abdomen/pelvis slightly degraded by respiration artifact. Noncontrasted stomach and bowel loops appear nonobstructed. Appendix not visualized.. There is now mild diffuse scattered colonic fecal debris. Tiny cul-de-sac fluid presumed physiologic from rupture/leaking cyst. Previous IUD has been removed. No free air. Stable 6 mm right lobe hepatic cyst/hemangioma, 1.5 cm left mid renal cyst, and nonobstructing left renal punctate calculus. Remaining liver, gallbladder, pancreas, spleen, adrenal glands, kidneys, ureters, bladder, uterus, and aorta are unremarkable for noncontrast exam. Osseous structures intact. Impression: 1. Respiration artifact. 2. New mild diffuse fecal stasis. 3. Again tiny cul-de-sac fluid presumed physiologic from rupture/leaking cyst. 4. Stable tiny hepatic cyst/hemangioma, small left renal cyst, nonobstructing left renal punctate calculus, and old granulomatous disease. 5. No acute findings on this noncontrast exam.
[2024-07-28 14:57] VITALS: O2SAT 99
== END 2024-07-28 15:21 | disposition home or self-care (01) ==
LOC: ED 11:01
DX: N83.209 Unspecified ovarian cyst, unspecified side (principal); K59.00 Constipation, unspecified; R10.2 Pelvic and perineal pain; Z79.899 Other long term (current) drug therapy
CPT/HCPCS: 36415; 74176; 76830; 80053; 81001; 84703; 85025; 96360; 96374; 96375; 99285; J1885; J2270; J2405